=== PATIENT | female | born 1935 | race Caucasian/White ===

== ENCOUNTER 2016-08-29 08:03 | Emergency (ER) | payer MEDICARE ==
[~2016-08-29] VITALS: Ht 177.8 cm; Wt 90.7 kg
[2016-08-29 08:41] LABS: HEMOGLOBIN 13.8 g/dL (12.2-16.2); LYMPH # 1.3 K/mm3 (0.7-4.5); LYMPH % 4.9 % (10-50.0)
[2016-08-29 08:43] LABS: STOOL OCCULT BLOOD POSITIVE (NEG)
[2016-08-29 08:48] LABS: URINE BLOOD TRACE-INTACT (NEG)
[2016-08-29 08:49] LABS: URINE BILIRUBIN - DIPSTICK NEGATIVE (NEG)
[2016-08-29 08:50] LABS: URINE SQUAMOUS CELLS OCC #/hpf (0-5)
[2016-08-29 08:55] LABS: AMPHETAMINES/METAMPHETAMINES NEGATIVE ng/mL (<1000)
[2016-08-29 09:09] LABS: NEUTROPHILS 95 % (42-76)
[2016-08-29 09:12] LABS: ABO BLOOD TYPE O; RH BLOOD TYPE POSITIVE
[2016-08-29 09:15] LABS: BUN 90 mg/dL (7-18); GFR (ESTIMATED) 24 ML/MIN (59-)
--- NOTE | 2016-08-29 09:15 | Emergency Room Report ---
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 Clinical Suspician of Infection? Mental Status: Sepsis Risk: Have you (or family members/close friends) recently traveled outside the [place]? If Yes, where/when: Have you had exposure to infectious disease within the past month? TB? Other? Specify: Bloody stools per EMS. EMS states that patient was found on sofa at home in stool with foul odor. FSBS noted to be 108. I have spoken with the family on arrival to the ED, and the son, with whom she lives, states that on August 24 she was noted to have vomiting. This lasted two days, then after that, she stopped eating. Yesterday she had diminished activity and diminished responsiveness progressively. He states she doesn't ambulate much due to prior leg and hip injuries, but is usually verbal. This morning, this seemed worse, as she was progressively nonverbal over the past day or so, and they called 911. Source RN notes reviewed, family, EMS ALLERGIES Coded Allergies: No Known Allergies (08/29/16) Home Medications Reported Medications No Known Home Medications History Medical History General Angina: No OR: No Hyperlipidemia? No CHF? No COPD? No Asthma? Yes Hernia? Yes CVA? No Seizures? No Diabetes? No UTI? No Stones? No GB Disease: No Hepatitis? No Cataracts? No Glaucoma? No TB? No Surgical Hx Previous Surgery?Y Tubal Ligation Hernia Hernia repair of colon, 1994 Family History Family Hx Diabetes No CAD Yes Hypertension Yes Hyperlipidemia No Cancer Yes TB No Social History Smoking Hx Smoker: Unknown if Ever Smoked Review of Systems All Other Systems Reviewed and Negative (limited ROS) Gastrointestinal see HPI Musculoskeletal see HPI Psychiatric/Neurological see HPI Physical Exam Vital Signs Vital Signs Date Time Temp Pulse Resp B/P Pulse O2 O2 Flow FiO2 Ox Delivery Rate 08/29 0850 89 20 112/70 94 08/29 0803 98.6 84 20 109/54 94 General Appearance normal appearance (Temp 98. Poorly groomed), FSBS 108. Patient alert to painful stimulus only. Eye Exam - bilateral eye normal exam, bilateral eye PERRL Ear, Nose, Throat hearing grossly normal (OP dry. ), dental caries (poor and scanty dentition), OP dry Neck limited exam Respiratory Status Yes: trachea midline, chest symmetrical, non tender chest. No: respiratory distress, tender on palpation, use of accessory muscles, pain on inspiration, pain on expiration, productive cough, non productive cough. Lung Sounds bilateral: normal breath sounds, lungs clear. Cardiovascular normal exam, regular rate/rhythm, no peripheral edema, no gallop, no JVD, no murmur, no rub, normal peripheral pulses Gastrointestinal normal bowel sounds, non tender, soft, no pulsatile mass, no guarding, no rebound, Patient lying in loose feces with streaks of blood. Back Diffuse breakdown on R; large open/gaping wound to left buttocks with blood tinged stool noted emanating from it, c/w likely fistula. visible pus, cultures obtained by staff. Extremities no pedal edema Rectal normal exam, blood streaked stool, No rectal fistula or pus noted; no vaginal stool or bleeding noted; staff holding patient on side during exam. Left buttocks fistula as noted above. Nurse present during exam? Yes Neurologic alert (limited exam, see GCS), Patient alert to painful stimulus for RN, verbal stimulus for MD, good spontaneous respirations with gag reflex, has diminished responsiveness but opens eyes easily when examined. No obvious facial droop; does not follow commands but no obvious unifocal findings. No tremor. , Limited neurological exam: does not follow commands except to open eyes. NO obvious focal findings. Glascow Coma Scale Glascow Coma Scale Response Value EYE response: 3 To Verbal Command 3 MOTOR response: 5 LOCALIZES PAIN 5 VERBAL response: 2 Incomprehensible Sounds 2 Total 10 Skin intact (see fistula), pallor Medical Decision Making LABS/Meds/Orders Pt receiving controlled substance in ED? No Results/Orders Laboratory Tests 08/29/16 0850: Antibody Screen NEGATIVE, Miscellaneous Test POSITIVE 08/29/16 0836: Stool Occult Blood POSITIVE, Opiates Screen NEGATIVE, Urine Methadone Screen NEGATIVE, Barbiturates NEGATIVE, Phencyclidine Screen NEGATIVE, Amphetamines Screen NEGATIVE, Benzodiazepines Screen NEGATIVE, Cocaine Screen NEGATIVE, Marijuana (THC) Screen NEGATIVE, Urine Color DK YELLOW, Urine Appearance SL CLOUDY, Urine pH 6.0, Ur Specific [place] 1.010, Urine Protein TRACE H, Urine Ketones TRACE H, Urine Blood TRACE-INTACT, Urine Nitrate NEGATIVE, Urine Bilirubin NEGATIVE, Urine Urobilinogen 1.0, Ur Leukocyte Esterase 3+ H, Urine RBC OCC, Urine WBC TNTC, Ur Squamous Epith Cells OCC, Urine Bacteria 3+, Urine Glucose NEGATIVE 08/29/16827: Lactic Acid Pending 08/29/16827: Sodium 133 L, Potassium 4.5, Chloride 94 L, Carbon Dioxide 24, BUN 90 H, Creatinine 2.0 H, Estimated Creat Clear 31 L, Estimated GFR (MDRD) 24 L, Glucose 132 H, Calcium 8.5, Total Bilirubin 1.2 H, AST 39 H, ALT 16, Alkaline Phosphatase 143 H, Creatine Kinase 78, CK-MB (CK-2) Rel Index 1.5, CK and CKMB Interp 1.2, Troponin I < 0.02, Total Protein 6.7, Albumin 1.6 L, Globulin 5.1 H, Albumin/Globulin Ratio 0.3 L, Lipase 91, WBC 26.8 *H, RBC 4.77, Hgb 13.8, Hct 41.6, MCV 87.3, RDW 14.2, Plt Count 391, MPV 9.6, Gran % 92.4 H, Gran # 24.8 H, Total Counted 100, Lymphocytes % 4.9 L, Monocytes % 1.9, Eosinophils % 0.3, Basophils % 0.3, Neutrophils 95 H, Lymphocytes (Manual) 3 L, Lymphocytes # 1.3, Monocytes (Manual) 2, Monocytes # 0.5, Eosinophils # 0.1, Basophils # 0.1 , Differential Comment NEUTROPHIL VACUOLIZATION 2+, Platelet Estimate MARKED INCREASE, Brii Cells 4+, PUBS MCHC 33.2, MCH 29.0, Alcohols 0 Current Medication Orders Sig/Satish Start time Last Medication Dose Route Stop Time Status Admin Sodium Chloride 1,000 ML .Q1H1M 08/29 0915 AC 08/29 IV 08/29 1015 0915 Sodium Chloride 10 ML PRN PRN 08/29 914 AC IV 08/30 09 Sodium Chloride 50 ML .STK-MED ONE 08/29 906 DC IV Piperacillin Sod/ 0 .STK-MED ONE 08/29 904 DCr Tazobactam Sod IV Sodium Chloride 1,000 ML .STK-MED ONE 08/29 09 DC IV Piperacillin Sod/ 3.375 GM ONCE ONE 08/29 09 DCr 08/29 Tazobactam Sod IV 08/29 928 0912 Sodium Chloride 50 ML Lactated Ringer's 1,000 ML .Q1H1M 08/29 829 DC IV Sodium Chloride 10 ML PRN PRN 08/29 829 AC IV 08/30 818 Sodium Chloride 10 ML PRN PRN 08/29 829 DC IV 08/30 08 Orders Procedure Date/time Status LACTIC ACID 08/29 920 Active CULTURE, URINE 08/29 835 Active DIFFERENTIAL-WBC 08/29 827 Complete CULTURE, WOUND 08/29 823 Active CARE MANAGEMENT REQUEST 08/29 821 Active ELECTROCARDIOGRAM REQUEST 08/29 820 Active CHEST-PORTABLE 08/29 820 Active IV SALINE LOCK 08/29 820 Active URINARY CATHETER INSERT 08/29 820 Active CULTURE, BLOOD 08/29 820 Active URINALYSIS/COMPLETE 08/29 820 Complete TYPE AND SCREEN 08/29 820 Complete STOOL OCCULT BLOOD 08/29 820 Complete LIPASE 08/29 820 Complete DRUG ABUSE SCREEN (10) 08/29 820 Complete CBC WITH AUTO DIFF 08/29 820 Complete CARDIAC ENZYMES 08/29 820 Complete CHEM 12 PROFILE 08/29 820 Complete ALCOHOL 08/29 820 Complete 12 LEAD EKG-[facility] (INIT[facility]) 08/29 UNK Active CM/EKG CM/EKG EKG rate, NSR, rhythm, normal [place], ST depression, Prolonged QTc, NSR 87. Consult MD Physician Consult Time Called 0900 Reason Pt. Condition, Transfer to facility, Gastroenterolgy eval/care, Surgical eval/care Complicating Factors Factors/Issues Noted EMS arrival, comp.acute illness or inj, high risk presentation, Uncertain prognosis Progress ED Progress Notes 1 Date 08/29/16 Time 0911 Comment I have spoken with all three children, who are now in the ER. One son lives with the patient, and the other two do not. They all agree that recently she has seemed like she did not want to live and has always expressed that she would not want to be intubated or resuscitated. I have had this conversation twice in order to confirm that each member of the family separately agrees that this is the case. Old records here are scanty. ED Progress Notes 2 Date 08/29/16 Time 0914 Comment I have spoken with the three children and they are aware that the patient prognosis is poor. ED Progress Notes 3 Date 08/29/16 Time 0924 Comment Our commercial manager, Jenni Jc, has called social media campaign manager due to poor grooming and breakdown of skin. Departure Departure Time of Disposition 908 Disposition DC/XFER from ER to [facility]. Hosp Clinical Impression Primary Impression: GI bleed Qualifiers: GI bleed type/associated pathology: unspecified gastrointestinal hemorrhage type Qualified Code: K92.2 - Gastrointestinal hemorrhage, unspecified Secondary Impressions: Elevated WBC count Fistula UTI (urinary tract infection) Qualifiers: Urinary tract infection type: acute cystitis Hematuria presence: without hematuria Qualified Code: N30.00 - Acute cystitis without hematuria Condition STABLE Prescriptions Current Visit Scripts No Known Home Medications ED Critical Care Critical Care Yes Time spent 30-74 min Vital system(s) involved: change in mental status; multiple d/w family; consultation; multiple reassessments. I was present at bedside for Coordinating pt's care, Interpreting EKGs/Strips , During my initial exam, Reviewing lab results, Discussing pt condition, For re -examinations at 0942
[2016-08-29 09:58] VITALS: BP 92/47
--- NOTE | 2016-08-29 13:33 | RADIOLOGY REPORT PS360 ---
CHEST-PORTABLE HISTORY: generalized weakness ORDERING PHYSICIAN: Ynes Reyes MD PATIENT AGE: 81 years COMPARISON: None available FINDINGS: Mild cardiomegaly without failure. Moderate patient rotation with under penetration. Increased density left lung base nonspecific. The remaining lungs are clear. IMPRESSION: Cardiomegaly with nonspecific density in the left CP angle. Differential diagnosis includes chronic change versus effusion/infiltrate.
== END 2016-08-29 10:20 | disposition short-term general hospital (02) ==
LOC: ER 08:03
PROVIDERS: Emergency Medicine
DX: K92.2 Gastrointestinal hemorrhage, unspecified (principal); K60.4 Rectal fistula; N30.00 Acute cystitis without hematuria; D72.9 Disorder of white blood cells, unspecified
CPT/HCPCS: G6040; J2543